=== PATIENT | male | born 1960 | race Caucasian/White ===

== ENCOUNTER 2024-01-10 01:08 | Emergency (ER) | payer OTHER ==
[2024-01-10 01:34] VITALS: BMI 35.2
[2024-01-10 03:19] LABS: BASO % 1.1 % (0-2.0); HEMATOCRIT 34.8 % (35.4-49); HEMOGLOBIN 11.9 GM/dL (11.7-16.9); MCH 28.7 pg (25.7-33.7); MCHC 34.2 g/dl (32.0-35.9); MEAN CELL VOLUME 83.9 fl (80-96); MEAN PLT VOLUME 6.9 fl (7.5-11.1); MONO % 5.4 % (3.8-10.2); NEUT % 64.5 % (42.8-82.8); PLATELET COUNT 268 10^3/uL (134-434); RBC 4.14 M/mm3 (4.00-5.60); RDW 15.6 % (11.9-15.9); WHITE BLOOD COUNT 7.3 K/mm3 (4.0-10.0)
[2024-01-10 03:25] LABS: INR 1.13 (0.83-1.09); PROTHROMBIN TIME (PATIENT) 12.9 SEC (9.7-13.0)
[2024-01-10 03:28] LABS: ACTIVATED PTT 31.6 SECONDS (25.2-36.5)
[2024-01-10 03:35] LABS: CHLORIDE 108 mmol/L (98-107); POTASSIUM 4.1 mmol/L (3.5-5.1); SODIUM 140 mmol/L (136-145)
[2024-01-10 03:37] LABS: ALBUMIN 3.4 g/dl (3.4-5.0); ANION GAP 5 mmol/L (4-13); BLOOD UREA NITROGEN 18.6 mg/dL (7-18); CO2 27 mmol/L (21-32); GLUCOSE,RANDOM 88 mg/dL (74-106)
[2024-01-10 03:40] LABS: SGOT/AST 29 U/L (15-37); SGPT/ALT 24 U/L (13-61)
[2024-01-10 03:42] LABS: BILIRUBIN,TOTAL 0.5 mg/dL (0.2-1); TOT PROT 7.8 g/dl (6.4-8.2)
[2024-01-10 03:43] LABS: ALK PHOS 81 U/L (45-117)
[2024-01-10 03:55] LABS: CALCIUM 8.9 mg/dL (8.5-10.1)
[2024-01-10 06:25] VITALS: BP 162/82; PULSE 68; RESP 16; TEMP 98.6
[2024-01-10 07:20] LABS: CREATININE 0.7 mg/dL (0.55-1.3)
== END 2024-01-10 06:43 | disposition home or self-care (01) ==
LOC: JER 01:08
PROC: 3E033GC Introduction of Other Therapeutic Substance into Peripheral Vein, Percutaneous Approach (ICD-10-PCS; principal; 2024-01-10)
DX: S09.93XA Unspecified injury of face, initial encounter (principal); Y04.8XXA Assault by other bodily force, initial encounter; Y92.410 Unspecified street and highway as the place of occurrence of the external cause
CPT/HCPCS: 36415; 70450-TC; 70486-TC; 72125-TC; 80053; 80307; 85025; 85610; 85730; 96374; 99284-25

== ENCOUNTER 2024-01-10 08:41 | Inpatient (IN) | payer OTHER ==
[2024-01-10 09:36] VITALS: BMI 32.3
[2024-01-10] MEDS ORDERED: LOPERAMIDE HCL 2 MG CAPSULE PO PRN (10:14)
[2024-01-10] MEDS ORDERED: MAGNESIUM HYDROX 2400MG/30ML ORAL SUSPENSION 30 ML CUP PO PRN (10:14)
[2024-01-10] MEDS ORDERED: ACETAMINOPHEN 325 MG TABLET (FP) PO PRN (10:14)
[2024-01-10] MEDS ORDERED: POLYETHYLENE GLYCOL (HEALTHYLAX) 3350 17 GM PACKET PO PRN (10:14)
[2024-01-10] MEDS ORDERED: DICYCLOMINE HCL 10 MG CAPSULE PO PRN (10:14)
[2024-01-10] MEDS ORDERED: guaiFENesin 600 MG TABLET.ER (FP) PO PRN (10:14)
[2024-01-10] MEDS ORDERED: NALOXONE (NARCAN) HCL 4 MG/0.1 ML SPRAY NS PRN (10:14)
[2024-01-10] MEDS ORDERED: BENZOCAINE/MENTHOL (CHLORASEPTIC ) LOZENGE MM PRN (10:14)
[2024-01-10] MEDS ORDERED: METHOCARBAMOL 500 MG TABLET PO PRN (10:14)
[2024-01-10] MEDS ORDERED: BISMUTH SUBSALICYLATE 524 MG/30 ML PO PRN (10:14)
[2024-01-10] MEDS ORDERED: NALOXONE (NYS OPIOID OVERDOSE PROGRAM) 4 MG/0.1 ML SPRAY NS PRN (10:14)
[2024-01-10] MEDS ORDERED: MAG HYDROX/AL HYDROX/SIMETH 30 ML UNIT-DOSE CUP PO PRN (10:14)
[2024-01-10] MEDS ORDERED: ONDANSETRON *ODT* 4 MG TABLET SL PRN (10:14)
[2024-01-10] MEDS ORDERED: BENZONATATE 200 MG CAPSULE PO PRN (10:14)
[2024-01-10] MEDS ORDERED: hydrOXYzine PAMOATE 25 MG CAPSULE (FP) PO PRN (10:14)
[2024-01-10] MEDS ORDERED: IBUPROFEN 600 MG TABLET (FP) PO PRN (10:14)
[2024-01-10] MEDS ORDERED: IBUPROFEN 400 MG TABLET (FP) PO PRN (10:14)
[2024-01-10] MEDS ORDERED: chlordiazePOXIDE HCL 25 MG CAPSULE ONE (12:07)
[2024-01-10] MEDS: chlordiazePOXIDE HCL 25 MG CAPSULE PO PRN (12:09)
[2024-01-10] MEDS: cloNIDine HCL 0.1 MG TABLET PO ONE (12:10)
[2024-01-10] MEDS: chlordiazePOXIDE HCL 25 MG CAPSULE PO SCH (17:24)
[2024-01-10 20:01] LABS: PH,URINE 6.5 (5.0-8.0); URINE APPEARANCE CLEAR; URINE BILIRUBIN NEGATIVE (NEGATIVE); URINE COLOR YELLOW; URINE GLUCOSE (UA) NEGATIVE (NEGATIVE); URINE KETONE NEGATIVE (NEGATIVE); URINE LEUK ESTERASE NEGATIVE (NEGATIVE); URINE NITRITE NEGATIVE (NEGATIVE); URINE PROTEIN NEGATIVE (NEGATIVE)
[2024-01-10] MEDS: MELATONIN 5 MG TABLETS PO SCH (22:26)
[2024-01-10] MEDS: THIAMINE 100 MG TABLET PO SCH (22:27)
[2024-01-10] MEDS: SILVER SULFADIAZINE 1% TOP CREAM 50 GM JAR TP SCH (22:32)
[2024-01-11] MEDS: PRENATAL VITAMINS W/ FOLIC ACID TABLET (FP) PO SCH (10:28)
[2024-01-11 11:25] LABS: HEMATOCRIT 36.3 % (35.4-49); HEMOGLOBIN 12.2 GM/dL (11.7-16.9); MCH 28.8 pg (25.7-33.7); MCHC 33.7 g/dl (32.0-35.9); MEAN CELL VOLUME 85.4 fl (80-96); MEAN PLT VOLUME 8.2 fl (7.5-11.1); PLATELET COUNT 180 10^3/uL (134-434); RBC 4.24 M/mm3 (4.00-5.60); RDW 15.4 % (11.9-15.9); WHITE BLOOD COUNT 5.4 K/mm3 (4.0-10.0)
[2024-01-11 11:58] LABS: CHLORIDE 110 mmol/L (98-107); POTASSIUM 4.4 mmol/L (3.5-5.1); SODIUM 139 mmol/L (136-145)
[2024-01-11 12:06] LABS: GLUCOSE,RANDOM 104 mg/dL (74-106)
[2024-01-11 12:09] LABS: ALBUMIN 2.8 g/dl (3.4-5.0); ANION GAP 0 mmol/L (4-13); CALCIUM 8.9 mg/dL (8.5-10.1); CO2 29 mmol/L (21-32)
[2024-01-11 12:10] LABS: BLOOD UREA NITROGEN 14.9 mg/dL (7-18); CREATININE 0.7 mg/dL (0.55-1.3)
[2024-01-11 12:11] LABS: BILIRUBIN,TOTAL 0.4 mg/dL (0.2-1)
[2024-01-11 12:13] LABS: ALK PHOS 63 U/L (45-117); SGOT/AST 16 U/L (15-37); SGPT/ALT 17 U/L (13-61)
[2024-01-11] MEDS: amLODIPine BESYLATE 5 MG TABLET (FP) PO SCH (13:09)
[2024-01-11] MEDS: LACTULOSE 20 GM/30 ML UDC (FOR ORAL USE ONLY) PO SCH (13:09)
[2024-01-12] MEDS: chlordiazePOXIDE HCL 25 MG CAPSULE PO SCH (05:50)
[2024-01-13] MEDS ORDERED: chlordiazePOXIDE HCL 10 MG CAPSULE PO PRN
[2024-01-13] MEDS: chlordiazePOXIDE HCL 10 MG CAPSULE PO SCH (05:22)
[2024-01-13] MEDS: amLODIPine BESYLATE 10 MG TABLET (FP) PO SCH (10:28)
[2024-01-13 13:16] VITALS: RESP 18; TEMP 97.7
[2024-01-13 16:58] VITALS: BP 151/82; PULSE 88
[2024-01-14] MEDS ORDERED: chlordiazePOXIDE HCL 10 MG CAPSULE PO SCH (05:00)
[2024-01-15] MEDS ORDERED: chlordiazePOXIDE HCL 10 MG CAPSULE PO ONE (05:00)
== END 2024-01-13 17:05 | disposition home or self-care (01) | DRG 897 ==
LOC: YASAS 08:41 → Y6N 11:11
PROVIDERS: ADMIT Surgery; ATTEND Surgery
PROC: HZ2ZZZZ Detoxification Services for Substance Abuse Treatment (ICD-10-PCS; principal; 2024-01-10)
DX: F10.230 Alcohol dependence with withdrawal, uncomplicated (principal); L97.319 Non-pressure chronic ulcer of right ankle with unspecified severity; F14.10 Cocaine abuse, uncomplicated; F17.210 Nicotine dependence, cigarettes, uncomplicated; F51.05 Insomnia due to other mental disorder; I10 Essential (primary) hypertension; R79.89 Other specified abnormal findings of blood chemistry; Z62.810 Personal history of physical and sexual abuse in childhood
CPT/HCPCS: 36415; 71045-TC-FY; 80053; 80305; 80307; 81003; 82140; 85027; 86780; 93005; 93010